=== PATIENT | male | born 1935 | race Caucasian/White ===

== ENCOUNTER 2019-12-16 15:14 | Observation (INO) | payer MEDICARE ==
[2019-12-16] MEDS ORDERED: IPRATROPIUM-ALBUTEROL 3 ML NEB INHALATION STA (16:28)
[2019-12-16 16:34] LABS: Anisocytosis Slight; Basophils % (A) 0 %; Eosinophils # (A) 0.1 k/uL (0-0.7); Eosinophils % (A) 2 %; HCT 35.4 % (39.0-53.0); HGB 10.8 gm/dL (13.0-17.5); Hypochromasia Marked; Lymphocytes # (A) 0.7 k/uL (1.0-4.8); Lymphocytes % (A) 9 %; MCH 26.3 pg (25.0-35.0); MCHC 30.5 g/dL (31.0-37.0); MCV 86.2 fL (80.0-100.0); Mean Platelet Volume 7.4; Monocytes # (A) 0.3 k/uL (0-1.0); Monocytes % (A) 4 %; Neutrophils # (A) 6.4 k/uL (1.3-7.7); Neutrophils % (A) 85 %; Platelet Count 176 k/uL (150-450); RBC 4.11 m/uL (4.30-5.90); WBC 7.6 k/uL (3.8-10.6)
[2019-12-16 16:39] LABS: Albumin 3.4 g/dL (3.5-5.0); Calcium 7.9 mg/dL (8.4-10.2); Magnesium 2.2 mg/dL (1.6-2.3); Total Bilirubin 0.6 mg/dL (0.2-1.3); Total Protein 5.7 g/dL (6.3-8.2)
--- NOTE | 2019-12-16 16:43 | ED ---
Weakness HPI - General Chief complaint: Weakness Stated complaint: Dehydrated,sawyer Time Seen by Provider: 12/16/19 16:00 Source: patient, RN notes reviewed Mode of arrival: wheelchair Limitations: no limitations - History of Present Illness Initial comments: This 84-year-old male history of COPD history of lung resection for cancer who states she's feeling very weak she was like he is dehydrated and shortness of breath he has a fevers chills or sweats. Denies any cough or phlegm production. Does have chronic peripheral edema he states. He does use reading treatments at home which did not help. No chest pain reported this time no other symptomat speedy RAMOS Complaint: generalized weakness - Related Data Allergies Allergy/AdvReac Type Severity Reaction Status Date / Time oxytocin Allergy Unknown Verified 12/16/19 15:54 Review of Systems ROS Statement: Those systems with pertinent positive or pertinent negative responses have been documented in the HPI. ROS Other: All systems not noted in ROS Statement are negative. Past Medical History Past Medical History: COPD, Osteoarthritis (OA) Additional Past Medical History / Comment(s): CA lung, bladder. History of Any Multi-Drug Resistant Organisms: None Reported Additional Past Surgical History / Comment(s): bladder CA surger, lung CA anamaria ivone. Past Psychological History: No Psychological Hx Reported Smoking Status: Former smoker Past Alcohol Use History: None Reported Past Drug Use History: None Reported General Exam - General Exam Comments Initial Comments: This is a well-developed well-nourished awake alert oriented 3 male Limitations: no limitations General appearance: alert, anxious, in distress Head exam: Present: atraumatic, normocephalic, normal inspection Eye exam: Present: normal appearance, PERRL, EOMI. Absent: scleral icterus, conjunctival injection, periorbital swelling ENT exam: Present: normal exam, mucous membranes moist Neck exam: Present: normal inspection. Absent: tenderness, meningismus, lymphadenopathy Respiratory exam: Present: wheezes, accessory muscle use, decreased breath sounds. Absent: respiratory distress, rales, rhonchi, stridor Cardiovascular Exam: Present: regular rate, normal rhythm, normal heart sounds. Absent: systolic murmur, diastolic murmur, rubs, gallop, clicks GI/Abdominal exam: Present: soft, normal bowel sounds. Absent: distended, tenderness, guarding, rebound, rigid Extremities exam: Present: full ROM, normal capillary refill, pedal edema. Absent: tenderness, joint swelling, calf tenderness Back exam: Present: normal inspection Neurological exam: Present: alert, oriented X3, CN II-XII intact Psychiatric exam: Present: normal affect, normal mood Skin exam: Present: warm, dry, intact, normal color. Absent: rash Course Vital Signs 12/16/19 12/16/19 12/16/19 15:49 16:51 16:54 Temperature 98.0 F Pulse Rate 98 88 89 Respiratory 18 18 Rate Blood Pressure 91/52 112/58 O2 Sat by Pulse 93 L 97 Oximetry 12/16/19 12/16/19 16:58 18:30 Temperature Pulse Rate 88 84 Respiratory 20 Rate Blood Pressure 107/52 O2 Sat by Pulse 96 Oximetry - Reevaluation(s) Reevaluation #1: 12/16/19 19:49 I did reevaluate patient several occasions he is feeling improved though his pulse ox is still in the low 90s on oxygen. He still dyspneic so demonstrates some respiratory problems with wheezing. CAT scan is negative for PE however does show evidence of bilateral infiltrates and evidence of a stellate infiltrate in the right upper lobe with the patient does know about this. Case discussed with Dr. Howell and he will be admitted for inpatient treatment of COPD exacerbation and pneumonitis. 12/16/19 19:52 EKG Findings - EKG Results: EKG: interpreted by SAEID, sinus rhythm (Sinus rhythm 86 NC 154 QRS 94 QT since QTC 350/[address]-T wave changes) Medical Decision Making - Lab Data Result diagrams: 12/16/19 16:17 12/16/19 16:17 Lab Results 12/16/19 12/16/19 12/16/19 Range/Units 16:17 16:17 16:17 WBC 7.6 (3.8-10.6) k/uL RBC 4.11 L (4.30-5.90) m/uL Hgb 10.8 L (13.0-17.5) gm/dL Hct 35.4 L (39.0-53.0) % MCV 86.2 (80.0-100.0) fL MCH 26.3 (25.0-35.0) pg MCHC 30.5 L (31.0-37.0) g/dL RDW 16.0 H (11.5-15.5) % Plt Count 176 (150-450) k/uL Neutrophils % 85 % Lymphocytes % 9 % Monocytes % 4 % Eosinophils % 2 % Basophils % 0 % Neutrophils # 6.4 (1.3-7.7) k/uL Lymphocytes # 0.7 L (1.0-4.8) k/uL Monocytes # 0.3 (0-1.0) k/uL Eosinophils # 0.1 (0-0.7) k/uL Basophils # 0.0 (0-0.2) k/uL Hypochromasia Marked Anisocytosis Slight PT 10.0 (9.0-12.0) sec INR 1.0 (<1.2) APTT 21.9 L (22.0-30.0) sec D-Dimer 0.72 H (<0.60) mg/L FEU Sodium 135 L (137-145) mmol/L Potassium 4.0 (3.5-5.1) mmol/L Chloride 102 (98-107) mmol/L Carbon Dioxide 32 H (22-30) mmol/L Anion Gap 1 mmol/L BUN 22 H (9-20) mg/dL Creatinine 0.96 (0.66-1.25) mg/dL Est GFR (CKD-EPI)AfAm 83 (>60 ml/min/1.73 sqM) Est GFR (CKD-EPI)NonAf 72 (>60 ml/min/1.73 sqM) Glucose 86 (74-99) mg/dL Plasma Lactic Acid Michel (0.7-2.0) mmol/L Calcium 7.9 L (8.4-10.2) mg/dL Magnesium 2.2 (1.6-2.3) mg/dL Total Bilirubin 0.6 (0.2-1.3) mg/dL AST 24 (17-59) U/L ALT 13 (4-49) U/L Alkaline Phosphatase 43 (38-126) U/L Creatine Kinase 139 (55-170) U/L Troponin I (0.000-0.034) ng/mL NT-Pro-B Natriuret Pep pg/mL Total Protein 5.7 L (6.3-8.2) g/dL Albumin 3.4 L (3.5-5.0) g/dL 09/02/2312/16/19 12/16/19 Range/Units 16:17 16:17 16:17 WBC (3.8-10.6) k/uL RBC (4.30-5.90) m/uL Hgb (13.0-17.5) gm/dL Hct (39.0-53.0) % MCV (80.0-100.0) fL MCH (25.0-35.0) pg MCHC (31.0-37.0) g/dL RDW (11.5-15.5) % Plt Count (150-450) k/uL Neutrophils % % Lymphocytes % % Monocytes % % Eosinophils % % Basophils % % Neutrophils # (1.3-7.7) k/uL Lymphocytes # (1.0-4.8) k/uL Monocytes # (0-1.0) k/uL Eosinophils # (0-0.7) k/uL Basophils # (0-0.2) k/uL Hypochromasia Anisocytosis PT (9.0-12.0) sec INR (<1.2) APTT (22.0-30.0) sec D-Dimer (<0.60) mg/L FEU Sodium (137-145) mmol/L Potassium (3.5-5.1) mmol/L Chloride (98-107) mmol/L Carbon Dioxide (22-30) mmol/L Anion Gap mmol/L BUN (9-20) mg/dL Creatinine (0.66-1.25) mg/dL Est GFR (CKD-EPI)AfAm (>60 ml/min/1.73 sqM) Est GFR (CKD-EPI)NonAf (>60 ml/min/1.73 sqM) Glucose (74-99) mg/dL Plasma Lactic Acid Michel 0.6 L (0.7-2.0) mmol/L Calcium (8.4-10.2) mg/dL Magnesium (1.6-2.3) mg/dL Total Bilirubin (0.2-1.3) mg/dL AST (17-59) U/L ALT (4-49) U/L Alkaline Phosphatase (38-126) U/L Creatine Kinase (55-170) U/L Troponin I <0.012 (0.000-0.034) ng/mL NT-Pro-B Natriuret Pep 234 pg/mL Total Protein (6.3-8.2) g/dL Albumin (3.5-5.0) g/dL Disposition Clinical Impression: COPD exacerbation, Pneumonitis Disposition: ADMITTED IP TO THIS HOSP Condition: Fair Referrals: None,Stated [Primary Care Provider] - 1-2 days
[2019-12-16 16:52] LABS: Partial Thromboplastin Time 21.9 sec (22.0-30.0)
[2019-12-16 16:59] LABS: D-Dimer 0.72 mg/L FEU (<0.60)
--- NOTE | 2019-12-16 17:10 | XR ---
EXAMINATION TYPE: XR chest 2V DATE OF EXAM: 12/16/2019 COMPARISON: NONE HISTORY: Difficulty breathing TECHNIQUE: FINDINGS: There is extensive coarse interstitial and to a lesser extent airspace infiltrate in both l ungs. There is slight blunting of the costophrenic angles. There are chest leads. Bony thorax is inta ct. IMPRESSION: There is evidence for congestive heart failure superimposed on pulmonary fibrosis.
--- NOTE | 2019-12-16 19:33 | CT ---
EXAMINATION TYPE: CT angio chest DATE OF EXAM: 12/16/2019 COMPARISON: None HISTORY: Difficulty breathing. CT DLP: 348.4 mGycm Automated exposure control for dose reduction was used. CONTRAST: Performed with IV Contrast, patient injected with 100 mL of Isovue 370. There are 3-D post processed images. There is a 2.5 cm stellate infiltrate lateral aspect right upper lobe. There is some coarse interstit ial infiltrates and atelectasis at the posterior lung bases. There is some loculated left pleural eff usion with calcification. There is small right pleural effusion. Heart size is normal. There is no pe ricardial effusion. There is normal contrast opacification of the pulmonary arteries. There are no filling defects. There is no mediastinal adenopathy. Heart is deviated slightly to the left side. IMPRESSION: No evidence of pulmonary embolism. Bilateral basilar atelectasis and infiltrate consistent with inflammatory disease. Loculated left ple ural effusion with calcification and could relate to chronic empyema. Mesothelioma not excluded. Ther e is some volume loss in the left lower hemithorax. Stellate right upper lobe nonspecific infiltrate.
[2019-12-16] MEDS ORDERED: cefTRIAXone IN SWFI 1,000 MG/10 ML SYRINGE IVP STA (19:58)
[2019-12-16] MEDS ORDERED: IPRATROPIUM-ALBUTEROL 3 ML NEB INHALATION SCH (20:00)
[2019-12-16] MEDS ORDERED: CEFDINIR 300 MG CAP PO STA (20:17)
[2019-12-16] MEDS ORDERED: IPRATROPIUM-ALBUTEROL 3 ML NEB INHALATION PRN (20:22)
[2019-12-16] MEDS ORDERED: AZITHROMYCIN 500 MG TAB PO SCH (22:45)
--- NOTE | 2019-12-16 22:48 | P.HPIM ---
History of Present Illness H&P Date: 12/16/19 The patient is an 84-year-old male with a PMH of COPD, chronic hypoxic respiratory failure on 2 L of nasal cannula oxygen at home continuously, lung cancer (initially diagnosed in 2003, subsequent lobectomy and remission with recurrence a few weeks ago with a right sided lung lesion confirmed via biopsy, planned for radiation therapy next month) presented to the ED with complaints of shortness of breath, cough, and lethargy. The history was supplemented by the patient's son at the bedside. The son reports that he had gone to pickle processor his father from [place] so that he could stay with him for a few days as he usually does, when he noticed that his father was coughing and appeared a little bit more tired than usual. The patient notes that he then developed progressive shortness of breath is morning, along with cough productive of yellowish white phlegm, which is in line with his multiple previous exacerbations of COPD. Patient reports that he usually feels more tired, develops a poor appetite, gets dehydrated, and subsequently gets admitted. At time of evaluation, the patient reported that he feels significantly better and his shortness of breath has improved greatly. He reported some chest tightness earlier today with the dyspnea, though denied palpitations, nausea, vomiting, diaphoresis. Denied fever though did report some chills earlier today. Further denied abdominal pain or diarrhea. In the emergency room, a chest CTA was negative for PE though did reveal loculat ed left-sided pleural effusion along with bibasilar atelectasis and a right upper lobe nonspecific infiltrate. EKG revealed a normal sinus rhythm at [address]pm with no acute ST/T-wave changes noted. Laboratory evaluation revealed a d-dimer of 0.72, hemoglobin 10.8, WBC count 7.6, proBNP 234, troponin less than 0.012, lactic acid 0.6, BUN 22, creatinine 0.96. Review of Systems Pertinent positives and negatives as discussed in HPI, a complete review of systems was performed and all other systems are negative. Past Medical History Past Medical History: COPD, Osteoarthritis (OA) Additional Past Medical History / Comment(s): CA lung, bladder. History of Any Multi-Drug Resistant Organisms: None Reported Additional Past Surgical History / Comment(s): bladder CA surger, lung CA surgery. Past Psychological History: No Psychological Hx Reported Smoking Status: Former smoker Past Alcohol Use History: None Reported Past Drug Use History: None Reported Medications and Allergies Allergies Allergy/AdvReac Type Severity Reaction Status Date / Time oxytocin Allergy Unknown Verified 12/16/19 15:54 Physical Exam Vitals: Vital Signs Temp Pulse Resp BP Pulse Ox 12/16/19 18:30 84 20 107/52 96 12/16/19 16:58 88 12/16/19 16:54 89 18 112/58 97 12/16/19 16:51 88 12/16/19 15:49 98.0 F 98 18 91/52 93 L Intake and Output 12/16/19 12/16/19 12/16/19 06:59 14:59 22:59 Other: Weight 74.843 kg General: non toxic, no distress, appears at stated age, normal weight, on nasal cannula oxygen Derm: no unusual rashes/lesions no unusual ecchymoses, warm, dry Head: atraumatic, normocephalic, symmetric Eyes: EOMI, no lid lag, anicteric sclera, pupils equal round reactive to light ENT: Nose and ears atraumatic, no thrush, no pharyngeal erythema Neck: No thyromegaly, no cervical lymphadenopathy, trachea midline, supple Mouth: no lip lesion, mucus membranes moist Cardiovascular: S1S2 reg, no murmur, positive posterior tibial pulse bilateral, capillary refill less than 2 seconds Lungs: Minimal scattered rhonchi with decreased breath sounds, no rales appreciated, no accessory muscle use Abdominal: soft, nontender to palpation, no guarding, no appreciable organomegaly, normal bowel sounds Ext: no gross muscle atrophy, muscle strength 5 out of 5 in all 4 extremities grossly, no contractures, 1+ bilateral lower extremity pitting edema to mid rico Neuro: CN II-XI grossly intact, light touch intact all 4 extremities, finger to nose within normal limits, Psych: Alert, oriented, appropriate affect Results CBC & Chem 7: 12/16/19 16:17 12/16/19 16:17 Labs: Abnormal Lab Results - Last 24 Hours (Table) 12/16/19 12/16/19 12/16/19 Range/Units 16:17 16:17 16:17 RBC 4.11 L (4.30-5.90) m/uL Hgb 10.8 L (13.0-17.5) gm/dL Hct 35.4 L (39.0-53.0) % MCHC 30.5 L (31.0-37.0) g/dL RDW 16.0 H (11.5-15.5) % Lymphocytes # 0.7 L (1.0-4.8) k/uL APTT 21.9 L (22.0-30.0) sec D-Dimer 0.72 H (<0.60) mg/L FEU Sodium 135 L (137-145) mmol/L Carbon Dioxide 32 H (22-30) mmol/L BUN 22 H (9-20) mg/dL Plasma Lactic Acid Michel (0.7-2.0) mmol/L Calcium 7.9 L (8.4-10.2) mg/dL Total Protein 5.7 L (6.3-8.2) g/dL Albumin 3.4 L (3.5-5.0) g/dL 12/16/19 Range/Units 16:17 RBC (4.30-5.90) m/uL Hgb (13.0-17.5) gm/dL Hct (39.0-53.0) % MCHC (31.0-37.0) g/dL RDW (11.5-15.5) % Lymphocytes # (1.0-4.8) k/uL APTT (22.0-30.0) sec D-Dimer (<0.60) mg/L FEU Sodium (137-145) mmol/L Carbon Dioxide (22-30) mmol/L BUN (9-20) mg/dL Plasma Lactic Acid Michel 0.6 L (0.7-2.0) mmol/L Calcium (8.4-10.2) mg/dL Total Protein (6.3-8.2) g/dL Albumin (3.5-5.0) g/dL Assessment and Plan Plan: Acute COPD exacerbation -Continue with Cefdinir and Azithromycin -Continue with Solu-Medrol 60 mg every 6 hourly -DuoNeb's [id number] and when necessary -Supplemental oxygen Normocytic anemia, no baseline available -Monitor CBC for now Metabolic alkalosis, likely compensatory from chronic hypercapnia -Monitor BMP for now Elevated BUN, likely due to poor oral intake -Continue with gentle IV fluids -Monitor BMP Chronic conditions: Lung cancer -Following w/ Oncologists in [place] DVT prophylaxis -IPCDs The patient is admitted with an anticipated greater than 2 midnight stay for evaluation of COPD exacerbation CODE STATUS: No Code (discussed with the patient who noted that he has previously filled out paperwork stating that he does not wish to be resuscitated in the event of a cardiac arrest or be placed on life support for any reason, including elective intubation) Discussed with: Patient, son Anticipated discharge date: 2-[address]: Home A total of 40 minutes was spent on the care of this complex patient more than 50% of the time was spent in counseling and care coordination.
[2019-12-16] MEDS ORDERED: TAMSULOSIN 0.4 MG CAP.ER.24H PO SCH (23:15)
[2019-12-16] MEDS ORDERED: traMADol 50 MG TAB PO SCH (23:15)
[2019-12-16] MEDS ORDERED: PRAMIPEXOLE 0.5 MG TAB PO SCH (23:15)
[2019-12-17] MEDS: BALSALAZIDE DISODIUM 750 MG CAPSULE PO SCH ×2 (00:31→08:12)
[2019-12-17] MEDS: MORPHINE SULFATE ER 15 MG TABLET PO SCH ×2 (00:32→08:10)
[2019-12-17] MEDS: methylPREDNISolone SOD SUCCI 125 MG/2 ML VIAL IV SCH ×3 (00:34→11:56)
[2019-12-17] MEDS: SODIUM CHLORIDE 0.9% 1,000 ML IV SCH ×2 (00:34→06:17)
[2019-12-17 07:26] LABS: Anisocytosis Slight; HCT 31.9 % (39.0-53.0); HGB 9.5 gm/dL (13.0-17.5); Hypochromasia Marked; MCH 26.2 pg (25.0-35.0); MCV 87.3 fL (80.0-100.0); Mean Platelet Volume 7.2; Platelet Count 164 k/uL (150-450); RBC 3.65 m/uL (4.30-5.90); RDW 16.7 % (11.5-15.5); WBC 7.2 k/uL (3.8-10.6)
[2019-12-17] MEDS ORDERED: PANTOPRAZOLE 40 MG TABLET PO SCH (07:30)
[2019-12-17 07:31] LABS: Calcium 7.8 mg/dL (8.4-10.2); Potassium 4.4 mmol/L (3.5-5.1)
[2019-12-17 07:58] VITALS: BP 100/61; RESP 16; TEMP 98.4
[2019-12-17] MEDS ORDERED: ASPIRIN 81 MG PO SCH (09:00)
[2019-12-17] MEDS ORDERED: MONTELUKAST 10 MG TAB PO SCH (09:00)
[2019-12-17] MEDS ORDERED: CHOLECALCIFEROL 1,000 UNIT TAB PO SCH (09:00)
[2019-12-17] MEDS ORDERED: FINASTERIDE 5 MG TAB PO SCH (09:00)
[2019-12-17] MEDS ORDERED: ESCITALOPRAM 20 MG TAB PO SCH (09:00)
[2019-12-17] MEDS ORDERED: CEFDINIR 300 MG CAP PO SCH (09:00)
[2019-12-17] MEDS ORDERED: FUROSEMIDE 10 MG TAB PO SCH (09:00)
[2019-12-17] MEDS: IPRATROPIUM-ALBUTEROL 3 ML NEB INHALATION SCH ×2 (09:19→12:01)
--- NOTE | 2019-12-17 12:01 | P.DS ---
Providers Date of admission: 12/16/19 19:56 Expected date of discharge: 12/17/19 Attending physician: Cristobal Howell MD Primary care physician: Cristobal Howell MD Hospital Course: The patient is an 84-year-old male with a PMH of COPD, chronic hypoxic respiratory failure on 2 L of nasal cannula oxygen at home continuously, lung cancer (initially diagnosed in 2003, subsequent lobectomy and remission with recurrence a few weeks ago with a right sided lung lesion confirmed via biopsy, planned for radiation therapy next month) presented to the ED with complaints of shortness of breath, cough, and lethargy. The history was supplemented by the patient's son at the bedside. The son reports that he had gone to pickle pumper his father from [place] so that he could stay with him for a few days as he usually does, when he noticed that his father was coughing and appeared a little bit more tired than usual. The patient notes that he then developed progressive shortness of breath is morning, along with cough productive of yellowish white phlegm, which is in line with his multiple previous exacerbations of COPD. Patient reports that he usually feels more tired, develops a poor appetite, gets dehydrated, and subsequently gets admitted. At time of evaluation, the patient reported that he feels significantly better and his shortness of breath has improved greatly. He reported some chest tightness earlier today with the dyspnea, though denied palpitations, nausea, vomiting, diaphoresis. Denied fever though did report some chills earlier today. Further denied abdominal pain or diarrhea. In the emergency room, a chest CTA was negative for PE though did reveal loculated left-sided pleural effusion along with bibasilar atelectasis and a right upper lobe nonspecific infiltrate. EKG revealed a normal sinus rhythm at 86 bpm with no acute [address]/T-wave changes noted. Laboratory evaluation revealed a d-dimer of 0.72, hemoglobin 10.8, WBC count 7.6, proBNP 234, troponin less than 0.012, lactic acid 0.6, BUN 22, creatinine 0.96. Patient was started on Solu-Medrol and given DuoNeb it's around the clock. He was started on cefdinir and azithromycin for acute bronchitis. Patient was seen and examined. No acute events overnight. Patient reports considerable improvement in his breathing since admission. Speaking in full sentences. Wanting to go home. States his back to baseline. On 3 L home O2. Has COPD medications and nebulizer at home. General: [non toxic], [no distress], [appears at stated age] Derm: [warm], [dry] Head: [atraumatic], [normocephalic], [symmetric] Eyes: [EOMI], [no lid lag], [anicteric sclera] Mouth: [no lip lesion], [mucus membranes moist] Cardiovascular: [S1S2 reg], [no murmur], [positive posterior tibial pulse bilateral], Lungs: [Decreased breath sounds bilateral], [no rhonchi, no rales] , [no accessory muscle use] Abdominal: [soft], [ nontender to palpation], [no guarding], [no appreciable organomegaly] Ext: [no gross muscle atrophy], [no edema], [no contractures] Neuro: [no focal neuro deficits] Psych: [Alert], [oriented], [appropriate affect] Acute COPD exacerbation related to acute bronchitis -2 more days of azithromycin for acute bronchitis -4 more days of prednisone 40 mg by mouth daily and then to continue home dose of prednisone 7.5 mg -DuoNeb's tboyb-oes-meptw and when necessary -Back to baseline 3 L home O2 Normocytic anemia, no baseline available -We'll need workup with PCP in the outpatient setting Elevated BUN, likely due to poor oral intake -Continue with gentle IV fluids -Monitor BMP Chronic conditions: Lung cancer -Following w/ Oncologists in [place] DVT prophylaxis -IPCDs Metabolic alkalosis is resolved. [Patient admitted for COPD exacerbation. Considerable improvement. Anticipated DC home today. Has meds, nebulizer machine and home O2 at home. This complex discharge took about 35 minutes to complete.] Pertinent Studies: Chest x-ray, chest CTA Patient Condition at Discharge: Stable Plan - Discharge Summary Discharge Rx Participant: No New Discharge Prescriptions: New Aspirin 81 mg PO DAILY chew predniSONE [Deltasone] 40 mg PO DAILY #8 tab Ipratropium-Albuterol Nebulize [Duoneb 0.5 mg-3 mg/3 ml Soln] 3 ml INHALATION RT-Q2H PRN ml PRN Reason: Shortness Of Breath Or Wheezing Montelukast [Singulair] 10 mg PO DAILY tab Azithromycin [Zithromax] 500 mg PO Q24H #2 tab Continue Alendronate Sodium 70 mg PO Q7D Balsalazide Disodium 2,250 mg PO TID Cholecalciferol [Vitamin D3 (25 Mcg = 1000 Iu)] 2,000 unit PO DAILY Dutasteride 0.5 mg PO DAILY Escitalopram [Lexapro] 20 mg PO DAILY Fluticasone Nasal [place] [Flonase Nasal [place]] 2 spr EA NOSTRIL BID Fluticasone/Salmeterol [Advair 500-50 Diskus] 1 puff INHALATION RT-BID Furosemide [Lasix] 20 mg PO DAILY Morphine Sulfate [Morphine Sulfate ER] 30 mg PO BID PRN PRN Reason: Pain Pantoprazole [Protonix] 40 mg PO DAILY Pramipexole [Mirapex] 0.5 mg PO TID Tamsulosin HCl [Flomax] 0.8 mg PO DAILY Tiotropium [place] [Spiriva] 1 cap INHALATION RT-DAILY traMADol HCl [Ultram] 50 mg PO DAILY PRN PRN Reason: Pain predniSONE 7.5 mg PO DAILY Discharge Medication List Alendronate Sodium 70 mg PO Q7D 12/17/19 [History] Aspirin 81 mg PO DAILY chew 12/17/19 [Rx] Azithromycin [Zithromax] 500 mg PO Q24H #2 tab 12/17/19 [Rx] Balsalazide Disodium 2,250 mg PO TID 12/17/19 [History] Cholecalciferol [Vitamin D3 (25 Mcg = 1000 Iu)] 2,000 unit PO DAILY 12/17/19 [History] Dutasteride 0.5 mg PO DAILY 12/17/19 [History] Escitalopram [Lexapro] 20 mg PO DAILY 12/17/19 [History] Fluticasone Nasal [place] [Flonase Nasal [place]] 2 spr EA NOSTRIL BID 12/17/19 [History] Fluticasone/Salmeterol [Advair 500-50 Diskus] 1 puff INHALATION RT-BID 12/17/19 [History] Furosemide [Lasix] 20 mg PO DAILY 12/17/19 [History] Ipratropium-Albuterol Nebulize [Duoneb 0.5 mg-3 mg/3 ml Soln] 3 ml INHALATION RT-Q2H PRN ml 12/17/19 [Rx] Montelukast [Singulair] 10 mg PO DAILY tab 12/17/19 [Rx] Morphine Sulfate [Morphine Sulfate ER] 30 mg PO BID PRN 12/17/19 [History] Pantoprazole [Protonix] 40 mg PO DAILY 12/17/19 [History] Pramipexole [Mirapex] 0.5 mg PO TID 12/17/19 [History] Tamsulosin HCl [Flomax] 0.8 mg PO DAILY 12/17/19 [History] Tiotropium [place] [Spiriva] 1 cap INHALATION RT-DAILY 12/17/19 [History] predniSONE 7.5 mg PO DAILY 12/17/19 [History] predniSONE [Deltasone] 40 mg PO DAILY #8 tab 12/17/19 [Rx] traMADol HCl [Ultram] 50 mg PO DAILY PRN 12/17/19 [History] Follow up Appointment(s)/Referral(s): None,Stated [REFERRING] - 1-2 days Activity/Diet/Wound Care/Special Instructions: Diet: Regular FU PCP within 3 days of DC. FU with your PCP for workup on anemia. Take all meds as advised. Come back to the ED for worsening CP, SOB, palpitations or dizziness.
[2019-12-17 12:16] VITALS: PULSE 88
== END 2019-12-17 13:27 | disposition home or self-care (01) ==
LOC: EC 15:14 → INTOOBSV 19:56 → 4SSUR 19:56 → UNDODISIN 12-17 13:27
PROVIDERS: ADMIT Internal Medicine; ATTEND Internal Medicine
DX: J44.1 Chronic obstructive pulmonary disease with (acute) exacerbation (principal); C34.91 Malignant neoplasm of unspecified part of right bronchus or lung; J44.0 Chronic obstructive pulmonary disease with (acute) lower respiratory infection; J20.9 Acute bronchitis, unspecified; E87.3 Alkalosis; J96.11 Chronic respiratory failure with hypoxia; J90 Pleural effusion, not elsewhere classified; J98.11 Atelectasis; E86.0 Dehydration; M19.90 Unspecified osteoarthritis, unspecified site; D64.9 Anemia, unspecified; R94.4 Abnormal results of kidney function studies; Z88.8 Allergy status to other drugs, medicaments and biological substances; Z99.81 Dependence on supplemental oxygen; Z87.891 Personal history of nicotine dependence; Z85.51 Personal history of malignant neoplasm of bladder; Z90.2 Acquired absence of lung [part of]
CPT/HCPCS: 96376; 96375; 96374; 99285; 36415; 94640 ×3; 93005; 85379; 83880; 80053; 80048; 82550; 83605; 83735; 84484; 85025; 85027; 85610; 85730; 87040; 71046; 71275; G0378 ×2; S0138; J2930; J0696; Q9967